=== PATIENT | male | born 1990 | race Caucasian/White ===

== ENCOUNTER 2017-05-23 18:08 | Emergency (ER) | payer OTHER ==
[2017-05-23] MEDS ORDERED: Phenergan 25 MG INJ IM ONE (18:59)
[2017-05-23] MEDS ORDERED: Sodium Chloride 0.9% 1000 ML 1,000 ML IV STA (18:59)
[2017-05-23] MEDS ORDERED: Sodium Chloride 0.9% 1000 ML 1,000 ML ONE (19:04)
[2017-05-23] MEDS ORDERED: Phenergan 25 MG INJ ONE (19:04)
[2017-05-23 19:10] LABS: BASOPHIL % 0.3 % (0.0-0.4); Eosinophil % 3.4 % (0.00-5.0); Granulocytes % 53.4 % (36.0-66.0); Lymphocytes % 36.1 % (24.0-44.0); Mean Cell Volume 88.7 fl (78-100); Mean Corpuscular Hemoglobin 30.4 pg (26-32); Mean Platelet Volume 11.9 fl (6-9.5); Monocytes % 6.8 % (0.0-12.0); Platelet Count 264 K/mm3 (150-450); Red Blood Count 4.96 M/mm3 (4.1-5.6); Red Cell Distribution Width 13.7 % (11.5-14.0); White Blood Count 7.6 K/mm3 (4.0-10.5)
--- NOTE | 2017-05-23 19:20 | ERPHSYRPT ---
- History of Present Illness Time Seen by Provider: 05/23/17 19:11 Historian: patient Exam Limitations: no limitations Patient Subjective Stated Complaint: abdominal paiin, diarrhea and fever today Triage Nursing Assessment: alert and oriented. abdomen soft.. slight pain on palpation to lower abdomen. + BS x4 quads.. diarrhea 4 hours ago.. staes able to keep fluids down. Physician History: 27-year-old white male arrives with lower abdominal pain several loose stools fever symptoms since today Patient has not had any vomiting . Patient states he's had similar symptoms 3 days ago. Past medical history negative past surgical history negative. Timing/Duration: today Activities at Onset: none Quality: cramping Abdominal Pain Onset Location: other (bilateral lower abdomen) Pain Radiation: no radiation Severity of Pain-Max: moderate Severity of Pain-Current: mild Modifying Factors: Worsens With: analgesics, antacids, breathing, coughing, defecating, eating, exercise, lying down, movement, palpation, rest, urinating, vomiting, position, walking Associated Symptoms: diarrhea, No back, No chest pain, No diaphoresis, No fever/ chills, No fatigue, No headache, No heartburn, No loss of appetite, No nausea, No neck pain, No rash, No shortness of breath, No syncope, No vomiting, No weakness Previous symptoms: same symptoms as today (similar symptoms 3 days ago) Allergies/Adverse Reactions: No Known Drug Allergies Allergy (Unverified 10/20/14 10:09) Hx Tetanus, Diphtheria Vaccination/Date Given: Yes (UP TO DATE) Hx Influenza Vaccination/Date Given: No Hx Pneumococcal Vaccination/Date Given: No Immunizations Up to Date: Yes - Review of Systems Constitutional: Fever, No Chills, No Fatigue, No Lethargy, No Malaise, No Night Sweats, No Weakness, No Weight Loss Eyes: No Symptoms Ears, Nose, & Throat: No Symptoms, No Ear Pain, No Ear Discharge, No Hearing Changes, No Tinnitus, No Nose Pain, No Nose Congestion, No Nose Discharge, No Sinus Drainage, No Epistaxis, No Mouth Pain, No Mouth Swelling, No Loose Teeth, No Throat Pain, No Throat Swelling, No Hoarse, No Painful Swallowing, No Snoring , No Stridor Respiratory: No Cough, No Dyspnea Cardiac: No Chest Pain, No Edema, No Syncope Abdominal/Gastrointestinal: Abdominal Pain, Diarrhea, No Nausea, No Vomiting, No Constipation, No Hematemesis, No Hematochezia, No Melena, No Dysphagia, No Appetite Changes Genitourinary Symptoms: No Dysuria Musculoskeletal: No Symptoms Skin: No Rash Neurological: No Dizziness, No Focal Weakness, No Sensory Changes Psychological: No Symptoms Endocrine: No Symptoms All Other Systems: Reviewed and Negative - Past Medical History Pertinent Past Medical History: No - Past Surgical History Past Surgical History: No - Social History Smoking Status: Current every day smoker How long have you smoked: 12 Exposure to second hand smoke: Yes Drug Use: none Patient Lives Alone: No - Nursing Vital Signs Nursing Vital Signs: Initial Vital Signs Temperature 97.4 F 05/23/17 18:49 Pulse Rate 85 05/23/17 18:49 Respiratory Rate 16 05/23/17 18:49 Blood Pressure 137/83 05/23/17 18:49 O2 Sat by Pulse Oximetry 98 05/23/17 18:49 Pain Scale Pain Intensity 0 - Physical Exam General Appearance: no apparent distress, alert Eye Exam: PERRL/EOMI, eyes nml inspection Ears, Nose, Throat Exam: normal ENT inspection, pharynx normal, moist mucous membranes Neck Exam: normal inspection, non-tender, supple, full range of motion Respiratory Exam: normal breath sounds, lungs clear, No respiratory distress Cardiovascular Exam: regular rate/rhythm, normal heart sounds Gastrointestinal/Abdomen Exam: soft, No tenderness, No mass Back Exam: normal inspection, normal range of motion, No CVA tenderness, No vertebral tenderness Extremity Exam: normal inspection, normal range of motion, pelvis stable Neurologic Exam: alert, oriented x 3, cooperative, lapping machine tender II-XII nml as tested, normal mood/affect, nml cerebellar function, sensation nml, No motor deficits Skin Exam: normal color, warm, dry SpO2 Interpretation: normal (98%) SpO2: 98 Oxygen Delivery: Room Air Ordered Tests: Active Orders 24 hr Category Date Time Status Clean Catch Urine Specimen STAT Care 05/23/17 18:59 Active IV Insertion STAT Care 05/23/17 18:59 Active CBC W DIFF Stat Lab 05/23/17 18:50 Completed CMP Stat Lab 05/23/17 18:50 Completed LIPASE Stat Lab 05/23/17 18:50 Completed UA W/RFX UR CULTURE Stat Lab 05/23/17 19:37 Completed Medication Summary Generic Name Dose Route Start Last Admin Trade Name Susan PRN Reason Stop Dose Admin Sodium Chloride 1,000 mls @ 999 mls/hr 05/23/17 18:59 05/23/17 19:06 Sodium Chloride 0.9% 1000 Ml IV 05/23/17 19:59 999 mls/hr .[id number] STA Administration Discontinued Medications Generic Name Dose Route Start Last Admin Trade Name Susan PRN Reason Stop Dose Admin Sodium Chloride Confirm 05/23/17 19:04 Sodium Chloride 0.9% 1000 Ml Administered 05/23/17 19:05 Dose 1,000 mls @ ud .ROUTE .STK-MED ONE Promethazine HCl 25 mg 05/23/17 18:59 05/23/17 19:08 Phenergan 25 Mg Inj IM 05/23/17 19:00 25 mg STAT ONE Administration Promethazine HCl Confirm 05/23/17 19:04 Phenergan 25 Mg Inj Administered 05/23/17 19:05 Dose 25 mg .ROUTE .STK-MED ONE Lab/Rad Data: Laboratory Result Diagrams 05/23/17 18:50 05/23/17 18:50 Laboratory Results 05/23/17 05/23/17 05/23/17 Range/Units 19:37 18:50 18:50 WBC 7.6 (4.0-10.5) K/mm3 RBC 4.96 (4.1-5.6) M/mm3 Hgb 15.1 (12.5-18.0) gm/dl Hct 44.0 (42-50) % MCV 88.7 (78-100) fl MCH 30.4 (26-32) pg MCHC 34.3 (32-36) g/dl RDW 13.7 (11.5-14.0) % Plt Count 264 (150-450) K/mm3 MPV 11.9 H (6-9.5) fl Gran % 53.4 (36.0-66.0) % Lymphocytes % 36.1 (24.0-44.0) % Monocytes % 6.8 (0.0-12.0) % Eosinophils % 3.4 (0.00-5.0) % Basophils % 0.3 (0.0-0.4) % Basophils # 0.02 (0-0.4) Sodium 140 (136-145) mEq/L Potassium 3.9 (3.5-5.1) mEq/L Chloride 105 (98-107) mEq/L Carbon Dioxide 27.3 (21-32) mEq/L Anion Gap 11.9 (5-15) MEQ/L BUN 16 (9-20) mg/dL Creatinine 0.88 (0.55-1.30) mg/dl Estimated GFR > 60 ML/MIN Glucose 89 (70-110) MG/DL Calcium 9.2 (8.5-10.1) mg/dL Total Bilirubin 0.30 (0.2-1.0) mg/dL AST 16 (15-37) U/L ALT 30 (12-78) U/L Alkaline Phosphatase 79 (46-116) U/L Serum Total Protein 7.6 (6.4-8.2) gm/dL Albumin 3.9 (3.4-5.0) g/dL Lipase 181 (73-393) U/L Ur Collection Type CLEAN CATCH Urine Color YELLOW (YELLOW) Urine Appearance CLEAR (CLEAR) Urine pH 7.0 (5-6) Ur Specific [place] 1.015 (1.005-1.025) Urine Protein NEGATIVE (Negative) Urine Ketones NEGATIVE (NEGATIVE) Urine Blood NEGATIVE (0-5) Samir/ul Urine Nitrite NEGATIVE (NEGATIVE) Urine Bilirubin NEGATIVE (NEGATIVE) Urine Urobilinogen NORMAL (0-1) mg/dL Ur Leukocyte Esterase NEGATIVE (NEGATIVE) Urine Culture Reflexed NO (NO) Urine Glucose NEGATIVE (NEGATIVE) mg/dL Specimen Received [id number] - Progress Progress: improved Progress Note: 05/23/17 19:52 27-year-old white male arrives with complaint of abdominal pain fever diarrhea symptoms since today. Patient without any significant past medical history. On physical examination slight tenderness in the suprapubic region bowel sounds are positive there is no rebound no masses. Labs are normal patient feeling better after a liter of normal saline. Will discharge patient. Patient does not want any pain meds. . - Departure Time of Disposition: 19:53 Departure Disposition: Home Clinical Impression: Abdominal pain Qualifiers: Abdominal location: unspecified location Qualified Code(s): R10.9 - Unspecified abdominal pain Diarrhea Qualifiers: Diarrhea type: unspecified type Qualified Code(s): R19.7 - Diarrhea, unspecified Condition: Fair Critical Care Time: No Referrals: DOCTOR,NO FAMILY [Primary Care Provider] - Instructions: Fever (Symptom) -- Adult Additional Instructions: Return home. Plenty of fluids clear fluids only 24-48 hours if abdominal pain. Follow-up with your family doctor if symptoms no better in 24 hours or persist longer than 48-72 hours or become worse. Return for acute distress or for severe symptoms. Tylenol every 4 hours as needed for temperature greater than 100.5 or pain.
[2017-05-23 19:34] LABS: ALBUMIN 3.9 g/dL (3.4-5.0); ALKALINE PHOSPHATASE 79 U/L (46-116); ANION GAP 11.9 MEQ/L (5-15); BLOOD UREA NITROGEN 16 mg/dL (9-20); CHLORIDE 105 mEq/L (98-107); Carbon Dioxide 27.3 mEq/L (21-32); Glucose 89 MG/DL (70-110); LIPASE 181 U/L (73-393); Potassium 3.9 mEq/L (3.5-5.1); SGOT/AST 16 U/L (15-37); SGPT/ALT 30 U/L (12-78); SODIUM 140 mEq/L (136-145); Total Protein 7.6 gm/dL (6.4-8.2)
[2017-05-23 19:41] LABS: ADD URINE CULTURE? NO (NO); Bilirubin NEGATIVE (NEGATIVE); Blood NEGATIVE Ery/ul (0-5); COMPLETE URINE MICROSCOPIC? NO; Collection Type CLEAN CATCH; Glucose NEGATIVE (NEGATIVE); Leukocyte Esterase NEGATIVE (NEGATIVE)
[2017-05-23 20:22] VITALS: BP 127/88; PULSE 60; O2SAT 100
== END 2017-05-23 20:22 | disposition home or self-care (01) ==
LOC: ED 18:08
DX: R10.9 Unspecified abdominal pain (principal); R19.7 Diarrhea, unspecified; R50.9 Fever, unspecified
CPT/HCPCS: 36000; 36415; 80053; 81002; 83690; 85025; 96360; 96372; 99284; J2550

== ENCOUNTER 2017-09-03 16:19 | Emergency (ER) | payer OTHER ==
[2017-09-03 16:34] VITALS: BP 128/70; PULSE 105; O2SAT 100
--- NOTE | 2017-09-03 16:40 | ERPHSYRPT ---
- History of Present Illness Time Seen by Provider: 09/03/17 16:34 Source: patient Exam Limitations: no limitations Allergies/Adverse Reactions: No Known Drug Allergies Allergy (Unverified 10/20/14 10:09) Hx Tetanus, Diphtheria Vaccination/Date Given: Yes (UP TO DATE) Hx Influenza Vaccination/Date Given: No Hx Pneumococcal Vaccination/Date Given: No - Past Medical History Pertinent Past Medical History: No - Past Surgical History Past Surgical History: No - Social History Smoking Status: Current every day smoker How long have you smoked: 12 Exposure to second hand smoke: Yes Drug Use: none Patient Lives Alone: No - Nursing Vital Signs Nursing Vital Signs: Initial Vital Signs Temperature 97.9 F 09/03/17 16:32 Pulse Rate 105 H 09/03/17 16:32 Respiratory Rate 18 09/03/17 16:32 Blood Pressure 128/70 09/03/17 16:32 O2 Sat by Pulse Oximetry 100 09/03/17 16:32 Pain Scale Pain Intensity 1 - Physical Exam SpO2: 100 Oxygen Delivery: Room Air - Departure Referrals: DOCTOR,NO FAMILY [Primary Care Provider] -
--- NOTE | 2017-09-03 16:45 | ERPHSYRPT ---
- History of Present Illness Time Seen by Provider: 09/03/17 16:34 Source: patient Exam Limitations: no limitations Physician History: The patient is a 27-year-old male who complains of 2 days of right testicle tenderness and swelling. He denies trauma to the area. He is worried about a hernia because he was moving a safe a few days ago. His past medical history is unremarkable. Timing/Duration: yesterday Activites at Onset: none Quality: aching Onset Location: right testicle Pain Radiation: none Severity of Pain-Max: moderate Severity of Pain-Current: moderate Modifying Factors: Improves With: nothing Associated Symptoms: swelling Prior abdominal problems: none Sexual intercourse history: non-contributory Allergies/Adverse Reactions: No Known Drug Allergies Allergy (Unverified 10/20/14 10:09) Hx Tetanus, Diphtheria Vaccination/Date Given: Yes (UP TO DATE) Hx Influenza Vaccination/Date Given: No Hx Pneumococcal Vaccination/Date Given: No - Past Medical History Pertinent Past Medical History: No - Past Surgical History Past Surgical History: No - Social History Smoking Status: Current every day smoker How long have you smoked: 12 Exposure to second hand smoke: Yes Drug Use: none Patient Lives Alone: No - Review of Systems Constitutional: No Fever, No Chills Eyes: No Symptoms Ears, Nose, & Throat: No Symptoms Respiratory: No Cough, No Dyspnea Cardiac: No Chest Pain, No Edema, No Syncope Abdominal/Gastrointestinal: No Abdominal Pain, No Nausea, No Vomiting, No Diarrhea Genitourinary Symptoms: Testicle Pain Musculoskeletal: No Back Pain, No Neck Pain Skin: No Rash Neurological: No Dizziness, No Focal Weakness, No Sensory Changes Psychological: No Symptoms Endocrine: No Symptoms Hematologic/Lymphatic: No Symptoms Immunological/Allergic: No Symptoms All Other Systems: Reviewed and Negative - Nursing Vital Signs Nursing Vital Signs: Initial Vital Signs Temperature 97.9 F 09/03/17 16:32 Pulse Rate 105 H 09/03/17 16:32 Respiratory Rate 18 09/03/17 16:32 Blood Pressure 128/70 09/03/17 16:32 O2 Sat by Pulse Oximetry 100 09/03/17 16:32 Pain Scale Pain Intensity 1 - Physical Exam General Appearance: no apparent distress, alert Eye Exam: PERRL/EOMI Ears, Nose, Throat Exam: pharynx normal, moist mucous membranes Neck Exam: normal inspection, supple Respiratory Exam: normal breath sounds, lungs clear Cardiovascular Exam: tachycardia, No edema Rectal Exam: not done Male Genital Exam: testicular tenderness (R) (posterior tenderness) Back Exam: normal inspection, No CVA tenderness Extremity Exam: normal inspection, normal range of motion, No pedal edema Neurologic Exam: alert, oriented x 3, cooperative, sensation nml, No motor deficits Skin Exam: normal color, warm, dry, No rash SpO2 Interpretation: normal SpO2: 100 Oxygen Delivery: Room Air - Progress Progress: unchanged Counseled pt/family regarding: diagnosis - Departure Time of Disposition: 16:43 Departure Disposition: Home Clinical Impression: Epididymitis Condition: Stable Critical Care Time: No Referrals: DOCTOR,NO FAMILY [Primary Care Provider] - Prescriptions: Ciprofloxacin [Cipro 500 MG] 1 tab PO BID #28 tablet
== END 2017-09-03 17:13 | disposition home or self-care (01) ==
LOC: ED 16:19
DX: N45.1 Epididymitis (principal)
CPT/HCPCS: 99281

== ENCOUNTER 2017-09-21 08:37 | Emergency (ER) | payer OTHER ==
[2017-09-21] MEDS ORDERED: XYLOCAINE 1% HCL 20 ML MDV IJ ONE (09:05)
--- NOTE | 2017-09-21 09:15 | ERPHSYRPT ---
- History of Present Illness Time Seen by Provider: 09/21/17 09:09 Source: patient Exam Limitations: no limitations Patient Subjective Stated Complaint: Pt state "I was at work and I guess the saw bladw was not done running yet and I got cut by it." Triage Nursing Assessment: Pt alert and oriented X 3, skin pwd. PT ambulates without difficutly, able to speak in clear full sentences. Pt has small laceration noted to left ring finger and left pinky. Physician History: Patient was at work and accidentally cut his left fourth and fifth finger on palmar surface with a saw blade. Patient with a 1 centimeter laceration of both fingers at the MCP and PIP joint respectively. Patient with minimal bleeding and denies numbness, tingling or weakness of distal fingers. Tetanus is up-to-date. No other injuries were noted. Occurred: just prior to arrival Method of Injury: incised Quality: intermittent Severity of Pain-Max: mild Severity of Pain-Current: mild Extremities Pain Location: 4th finger: left, 5th finger: left Modifying Factors: Improves With: immobilization (improves), movement (wworsen) Associated Symptoms: none Allergies/Adverse Reactions: No Known Drug Allergies Allergy (Unverified 10/20/14 10:09) Home Medications: Fluoxetine HCl 10 mg [Prozac 10 mg] 20 mg PO DAILY 09/21/17 [History] Hx Tetanus, Diphtheria Vaccination/Date Given: Yes Hx Influenza Vaccination/Date Given: No Hx Pneumococcal Vaccination/Date Given: No Immunizations Up to Date: Yes - Review of Systems Constitutional: No Fever, No Chills Eyes: No Symptoms Ears, Nose, & Throat: No Symptoms Respiratory: No Cough, No Dyspnea Cardiac: No Chest Pain, No Edema, No Syncope Abdominal/Gastrointestinal: No Abdominal Pain, No Nausea, No Vomiting, No Diarrhea Genitourinary Symptoms: No Dysuria Musculoskeletal: No Symptoms, No Back Pain, No Neck Pain Skin: Other (left fourthand fifth finger lacerations in history of present illness), No Rash Neurological: No Dizziness, No Focal Weakness, No Sensory Changes Psychological: No Symptoms Endocrine: No Symptoms All Other Systems: Reviewed and Negative - Past Medical History Pertinent Past Medical History: Yes Psycho-Social History: Anxiety - Past Surgical History Past Surgical History: No - Social History Smoking Status: Current every day smoker How long have you smoked: 15 years Exposure to second hand smoke: Yes Drug Use: marijuana Patient Lives Alone: No - Nursing Vital Signs Nursing Vital Signs: Initial Vital Signs Temperature 98.1 F 09/21/17 08:43 Pulse Rate 108 H 09/21/17 08:43 Respiratory Rate 18 09/21/17 08:43 Blood Pressure 150/96 09/21/17 08:43 O2 Sat by Pulse Oximetry 100 09/21/17 08:43 Pain Scale Pain Intensity 0 - Physical Exam General Appearance: alert Eyes, Ears, Nose, Throat Exam: moist mucous membranes Neck Exam: non-tender, supple Cardiovascular/Respiratory Exam: chest non-tender, normal breath sounds, regular rate/rhythm, no respiratory distress Abdominal Exam: non-tender, No guarding Back Exam: normal inspection, No vertebral tenderness Shoulder Exam: normal inspection Elbow/Forearm Exam: normal inspection Wrist Exam: normal inspection Hand Exam: laceration (there are 1 cm lacerations to the left fourth/fifth finger on palmar surface. Laceration deep to subcutaneous and does not appear to involve the tendons. Patient with good flexion strength of fourth and fifth fingers. Sensory intact as well. Good capillary refill) Neuro/Tendon Exam: normal sensation, normal motor functions Mental Status Exam: alert, oriented x 3, cooperative Skin Exam: normal color, warm, dry SpO2: 100 Oxygen Delivery: Room Air Procedures - Laceration/Wound Repair Left Finger Wound Location: Left (fourth/fifth fingers) Wound Length (cm): 1 Wound's Depth, Shape: superficial Wound Explored: no foreign body noted Irrigated: Yes Hibiclens Prep: Yes Anesthesia: 1% Lidocaine Volume Anesthetic (ccs): 5 Wound Debrided: minimal Wound Repaired With: sutures Suture Size/Type: 4-0, nylon Number of Sutures: 7 (4 to 4th/3 to 5th fingers) Layer Closure?: No Sterile Dressing Applied?: Yes Splint Applied?: Yes Type of Splint Applied: Finger Splint Sling Applied?: No - Course Nursing assessment & vital signs reviewed: Yes Ordered Tests: Active Orders 24 hr Category Date Time Status Prepare for Sutures STAT Care 09/21/17 09:05 Ordered Splint STAT Care 09/21/17 09:05 Ordered Sutures STAT Care 09/21/17 09:07 Ordered Wound Care STAT Care 09/21/17 09:05 Ordered Medication Summary Discontinued Medications Generic Name Dose Route Start Last Admin Trade Name Freq PRN Reason Stop Dose Admin Lidocaine HCl 10 ml 09/21/17 09:05 Xylocaine 1% Hcl 20 Ml Mdv IJ 09/21/17 09:06 STAT ONE - Progress Progress: improved Counseled pt/family regarding: diagnosis - Departure Time of Disposition: :43 Departure Disposition: Home Clinical Impression: Laceration of left ring finger, Laceration of left little finger Condition: Stable Critical Care Time: No Referrals: DOCTOR,NO FAMILY [Primary Care Provider] - Instructions: Laceration Repair With Stitches (DC), Wound Care (DC) Additional Instructions: May use Motrin/Tylenol for pain. Sutures may be removed in 10-14 days. No use of left hand until sutures removed Return for worse pain, swelling, pus from wound, numbness, tingling or weakness of fingers. Prescriptions: Cephalexin Mh 500 mg [Keflex 500 mg] 500 mg PO QID #40 capsule
[2017-09-21] MEDS ORDERED: BACIGUENT PACKET TP ONE (09:49)
[2017-09-21] MEDS ORDERED: BACIGUENT PACKET ONE (09:50)
[2017-09-21 09:51] VITALS: O2SAT 100
[2017-09-21] MEDS ORDERED: MOTRIN 400 MG ONE (10:02)
[2017-09-21] MEDS ORDERED: MOTRIN 600 MG PO ONE (10:03)
[2017-09-21 10:06] VITALS: BP 153/89; PULSE 103
== END 2017-09-21 10:11 | disposition home or self-care (01) ==
LOC: ED 08:37
PROC: 0HQGXZZ Repair Left Hand Skin, External Approach (ICD-10-PCS; principal; 2017-09-21)
DX: S61.215A Laceration without foreign body of left ring finger without damage to nail, initial encounter (principal); S61.217A Laceration without foreign body of left little finger without damage to nail, initial encounter; W31.2XXA Contact with powered woodworking and forming machines, initial encounter; Y92.69 Other specified industrial and construction area as the place of occurrence of the external cause; Y99.0 Civilian activity done for income or pay
CPT/HCPCS: 12001; 99283; A9270-GY

== ENCOUNTER 2017-09-24 13:46 | Emergency (ER) | payer OTHER ==
[2017-09-24 14:02] VITALS: BP 145/79
[2017-09-24] MEDS ORDERED: TORAdol 30 mg Injection IM ONE (14:22)
[2017-09-24] MEDS ORDERED: TORAdol 30 mg Injection ONE (14:29)
--- NOTE | 2017-09-24 14:47 | ERPHSYRPT ---
- History of Present Illness Time Seen by Provider: 09/24/17 14:08 Source: patient Patient Subjective Stated Complaint: pt here left rib area since last night, tripped and fell on a wooden crate last night Triage Nursing Assessment: pt alert, resp easy, skin w/d/p, no bruising noted Physician History: CC: left rib pain Hx: 27 y/o patient was running in yard at home last night and fell striking left ribs on a box/crate. He has pain in the left ribs. Pain worse with cough or movement. No other injuries. No diff breathing. No neck or back pain. He has cut on finger, already cared for and does not want it checked. Social: Works at [employer] Allergies/Adverse Reactions: No Known Drug Allergies Allergy (Verified 09/24/17 14:05) Home Medications: Fluoxetine HCl 10 mg [Prozac 10 mg] 20 mg PO DAILY 09/21/17 [History] Hx Tetanus, Diphtheria Vaccination/Date Given: Yes Hx Influenza Vaccination/Date Given: Yes Hx Pneumococcal Vaccination/Date Given: No Immunizations Up to Date: Yes - Review of Systems Constitutional: No Symptoms Respiratory: No Dyspnea Cardiac: Chest Pain (left ribs) Abdominal/Gastrointestinal: No Nausea, No Vomiting - Past Medical History Pertinent Past Medical History: No Psycho-Social History: Anxiety - Past Surgical History Past Surgical History: No - Social History Smoking Status: Current every day smoker How long have you smoked: 15 years Exposure to second hand smoke: Yes Drug Use: marijuana Patient Lives Alone: No - Nursing Vital Signs Nursing Vital Signs: Initial Vital Signs Temperature 97.3 F 09/24/17 14:00 Pulse Rate 92 H 09/24/17 14:00 Respiratory Rate 20 09/24/17 14:00 Blood Pressure 145/79 09/24/17 14:00 O2 Sat by Pulse Oximetry 99 09/24/17 14:00 Pain Scale Pain Intensity 10 - Physical Exam General Appearance: alert Eye Exam: PERRL/EOMI Ears, Nose, Throat Exam: normal ENT inspection, moist mucous membranes Neck Exam: normal inspection, non-tender, supple Respiratory Exam: normal breath sounds, chest tenderness (left lateral ribs), other (no crepitus), No respiratory distress Cardiovascular Exam: regular rate/rhythm, No murmur Gastrointestinal/Abdomen Exam: soft, No tenderness, No distention, No guarding Extremity Exam: normal range of motion, other (bandage on hand) Neurologic Exam: alert, oriented x 3, cooperative, sensation nml, No motor deficits Skin Exam: warm, dry, No rash, No ecchymosis SpO2 Interpretation: normal SpO2: 99 Oxygen Delivery: Room Air - Course Nursing assessment & vital signs reviewed: Yes - Radiology Exams cxr X-ray Interpretation: Interpreted by me, No Fracture, No Pneumonia, No Pneumothorax Ordered Tests: Active Orders 24 hr Category Date Time Status NPO (ED) STAT Care 09/24/17 14:22 Active CHEST 2 VIEWS (PA AND LAT) Stat Exams 09/24/17 14:21 Ordered Medication Summary Discontinued Medications Generic Name Dose Route Start Last Admin Trade Name Freq PRN Reason Stop Dose Admin Ketorolac Tromethamine 60 mg 09/24/17 14:22 09/24/17 14:35 Toradol 30 Mg Injection IM 09/24/17 14:23 60 mg STAT ONE Administration Ketorolac Tromethamine Confirm 09/24/17 14:29 Toradol 30 Mg Injection Administered 09/24/17 14:30 Dose 60 mg .ROUTE .STK-MED ONE - Progress Progress Note: 09/24/17 14:45 Rib contusion instr given. Counseled pt/family regarding: diagnosis, need for follow-up, rad results - Departure Time of Disposition: 14:46 Departure Disposition: Home Clinical Impression: Contusion of rib on left side Condition: Stable Critical Care Time: No Referrals: DOCTOR,NO FAMILY [Primary Care Provider] - Instructions: Bruised Rib Additional Instructions: Ice off and on. Rx ibuporofen. Return for fever or shortness of breath. Prescriptions: Ibuprofen 1 tab PO Q6H PRN PRN #24 tablet PRN Reason: pain
[2017-09-24 15:05] VITALS: PULSE 78; O2SAT 98
--- NOTE | 2017-09-24 20:53 | XRAY ---
Indication: Left rib pain following fall. Comparison: August 05, 2008. PA/lateral chest again demonstrates normal heart and lungs. Bony thorax intact.
== END 2017-09-24 15:05 | disposition home or self-care (01) ==
LOC: ED 13:46
DX: S20.212A Contusion of left front wall of thorax, initial encounter (principal); W18.39XA Other fall on same level, initial encounter; Y93.02 Activity, running
CPT/HCPCS: 71046; 96372; 99282; J1885

== ENCOUNTER 2019-09-28 10:53 | Emergency (ER) | payer MEDICAID, OTHER ==
--- NOTE | 2019-09-28 11:09 | ERPHSYRPT ---
- History of Present Illness Time Seen by Provider: 09/28/19 11:09 Source: patient Exam Limitations: no limitations Physician History: This is a 29-year-old white male who presents with approximately 2-day history of swelling to his left side upper lip. There is tenderness associated with this. Patient does have a mustache in this region. There is mild to moderate swelling yesterday and then that is increased today. There is been no drainage present. Patient denies fevers. Timing/Duration: gradual onset Severity: mild (To moderate) ENT Location: facial (Left upper lip) Prearrival Treatment: no prearrival treatment Associated Symptoms: facial pain/swelling (Left upper lip), No fever, No chills Allergies/Adverse Reactions: No Known Drug Allergies Allergy (Verified 09/28/19 11:01) Hx Tetanus, Diphtheria Vaccination/Date Given: Yes Hx Influenza Vaccination/Date Given: Yes Hx Pneumococcal Vaccination/Date Given: No - Review of Systems Constitutional: No Symptoms, No Fever, No Chills Eyes: No Symptoms Ears, Nose, & Throat: Other (Left upper lip swelling) Respiratory: No Symptoms Cardiac: No Symptoms Abdominal/Gastrointestinal: No Symptoms Genitourinary Symptoms: No Symptoms Musculoskeletal: No Symptoms Skin: No Symptoms Neurological: No Symptoms Psychological: No Symptoms Endocrine: No Symptoms Hematologic/Lymphatic: No Symptoms Immunological/Allergic: No Symptoms All Other Systems: Reviewed and Negative - Past Medical History Pertinent Past Medical History: No Neurological History: No Pertinent History ENT History: No Pertinent History Cardiac History: No Pertinent History Respiratory History: No Pertinent History Endocrine Medical History: No Pertinent History Musculoskeletal History: No Pertinent History GI Medical History: No Pertinent History History: No Pertinent History Psycho-Social History: Anxiety Male Reproductive Disorders: No Pertinent History - Past Surgical History Past Surgical History: No Neuro Surgical History: No Pertinent History Cardiac: No Pertinent History Respiratory: No Pertinent History Gastrointestinal: No Pertinent History Genitourinary: No Pertinent History Musculoskeletal: No Pertinent History Male Surgical History: No Pertinent History - Social History Smoking Status: Current every day smoker How long have you smoked: 15 years Exposure to second hand smoke: Yes Drug Use: marijuana Patient Lives Alone: No - Nursing Vital Signs Nursing Vital Signs: Initial Vital Signs Temperature 98.1 F 09/28/19 11:02 Pulse Rate 103 H 09/28/19 11:02 Respiratory Rate 18 09/28/19 11:02 Blood Pressure 128/88 09/28/19 11:02 O2 Sat by Pulse Oximetry 100 09/28/19 11:02 Pain Scale Pain Intensity 6 - Physical Exam General Appearance: no apparent distress, alert, anxiety Eye Exam: bilateral eye: normal inspection, PERRL, EOMI Ear Exam: bilateral ear: auricle normal Nasal Exam: normal inspection Neck Exam: normal inspection, non-tender, supple, full range of motion, trachea midline Cardiovascular/Respiratory Exam: chest non-tender Abdominal Exam: non-tender Neurologic Exam: alert, oriented x 3, cooperative, 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 Area is indurated with some mild localized cellulitis underneath the patient's mustache. There is no pus expressible at this time. There is no drainage visible.) SpO2 Interpretation: normal O2 Delivery: Room Air - Course Nursing assessment & vital signs reviewed: Yes Ordered Tests: Medication Summary Discontinued Medications Generic Name Dose Route Start Last Admin Trade Name Raphaelq PRN Reason Stop Dose Admin Ceftriaxone Sodium 1,000 mg 09/28/19 11:26 09/28/19 11:39 Rocephin 1000 Mg Inj IM 09/28/19 11:27 1,000 mg STAT ONE Administration Ceftriaxone Sodium Confirm 09/28/19 11:34 Rocephin 1000 Mg Inj Administered 09/28/19 11:35 Dose 1,000 mg .ROUTE .STK-MED ONE Lidocaine HCl Confirm 09/28/19 11:34 Xylocaine 1% Hcl 20 Ml Mdv Administered 09/28/19 11:35 Dose 3 ml .ROUTE .STK-MED ONE Trimethoprim/Sulfamethoxazole 1 tab 09/28/19 11:26 09/28/19 11:36 Bactrim Ds Tablet PO 09/28/19 11:27 1 tab STAT ONE Administration Trimethoprim/Sulfamethoxazole Confirm 09/28/19 11:34 Bactrim Ds Tablet Administered 09/28/19 11:35 Dose 1 tab PO .STK-MED ONE - Progress Progress: unchanged Progress Note: 09/28/19 11:51 Differential diagnosis: Deep abscess, cellulitis, folliculitis Medical decision making: At this time, the patient does not appear to have an abscess. There is no expressible pus externally or internally. There is cellulitis very localized and it appears as though there is folliculitis present. There is no abscess to drain at this time. Counseled pt/family regarding: diagnosis, need for follow-up - Departure Departure Disposition: Home Clinical Impression: Folliculitis, Cellulitis Condition: Stable Critical Care Time: No Referrals: DOCTOR,NO FAMILY [Primary Care Provider] - Additional Instructions: Shaved off your mustache. To area 3 times a day. Purchase the product called mami ease from the pharmacy and follow the directions on the package. Return tomorrow to the emergency department for re-examination. Wash area twice a day with soap and water. Add ibuprofen 600 mg orally 3 times a day with food to help with pain and swelling. Prescriptions: Hydrocodone/APAP 5-325 Tab^^^ [Blackstone 5-325 Tablet^^^] 1 tab PO Q6HPRN PRN #10 tablet MDD 6 PRN Reason: Pain Smz/Tmp Ds Tablet [Bactrim Ds Tablet] 1 udtab PO BID #14 tablet
[2019-09-28 11:10] VITALS: BP 128/88; PULSE 103; O2SAT 100
[2019-09-28] MEDS ORDERED: Rocephin 1000 MG INJ IM ONE (11:26)
[2019-09-28] MEDS ORDERED: BACTRIM DS TABLET PO ONE ×2 (11:26→11:34)
[2019-09-28] MEDS ORDERED: Rocephin 1000 MG INJ ONE (11:34)
[2019-09-28] MEDS ORDERED: XYLOCAINE 1% HCL 20 ML MDV ONE (11:34)
== END 2019-09-28 12:21 | disposition home or self-care (01) ==
LOC: ED 10:53
DX: L73.9 Follicular disorder, unspecified (principal); K13.0 Diseases of lips
CPT/HCPCS: 96372; 99283; J0696; A9270-GY

== ENCOUNTER 2020-11-09 18:40 | Emergency (ER) | payer MEDICAID, OTHER ==
[2020-11-09] MEDS ORDERED: SUBLIMAZE 100 MCG/2 ML IV ONE (18:55)
[2020-11-09] MEDS ORDERED: Zofran 4 MG/2 ML VIAL IV ONE (18:55)
[2020-11-09 18:59] VITALS: O2SAT 99
[2020-11-09 19:16] LABS: Hematocrit 41.8 % (42-50); Hemoglobin 14.1 gm/dl (12.5-18.0); Mean Cell Volume 90.1 fl (78-100); Mean Corpuscular Hemoglobin 30.4 pg (26-32); Mean Corpuscular Hgb Concent. 33.7 g/dl (32-36); Mean Platelet Volume 10.8 fl (7.5-11.0); Platelet Count 285 K/mm3 (150-450); Red Blood Count 4.64 M/mm3 (4.1-5.6); Red Cell Distribution Width 13.6 % (11.5-14.0); White Blood Count 7.8 K/mm3 (4.0-10.5)
--- NOTE | 2020-11-09 19:20 | ERPHSYRPT ---
- History of Present Illness Source: patient Exam Limitations: intoxication, other (Poor historian who is somewhat uncooper ative) Patient Subjective Stated Complaint: Pt has been drinking, doing meth, and smoking pot and was up in a tree and fell injuring his left ribs Triage Nursing Assessment: Pt brought into the ER by his friend, pt guarding left ribs, fell approx 10 ft out of a tree, rates pain 10/10 all to the left side, reports drinking alcohol, doing meth, and smoking pot today, pt calling the doctor a "Morro" due to him telling him that we needed a urine from him prior to giving him pain medication, pulses normal, skin n/w/d, no visible bruising Physician History: 30 yo wm who has been using methamphetamine/EtOh today fell out of tree approx 10 ft. Pt's pain level is a 10. He complains of L lateral thoracic pain and denies LOC/PULIDO/cervical pain/abdominal pain/UE-LE pain. Method of Injury: fall (Fell from tree 10ft?) Occurred: just prior to arrival Where Injury Occurred: home Loss of Consciousness: no loss of consciousness Pain Location: chest Severity of Pain-Max: severe Severity of Pain-Current: severe Modifying Factors: Improves With: movement Associated Symptoms: No abdominal pain, No back pain, No confusion, No chest pain, No dizziness, No extremity injury, No headache, No lightheadedness, No muscle spasms, No nausea, No neck pain, No ringing in ears, No seizures, No shortness of breath, No slurred speech, No trouble walking, No vomiting Allergies/Adverse Reactions: No Known Drug Allergies Allergy (Verified 11/09/20 18:58) Home Medications: No Reportable Medications [No Reported Medications] 11/09/20 [History] Hx Tetanus, Diphtheria Vaccination/Date Given: Yes (4 or 5 years ago) Hx Influenza Vaccination/Date Given: Yes Hx Pneumococcal Vaccination/Date Given: No Travel Risk - International Travel Have you traveled outside of the country in past 3 weeks: No - Coronavirus Screening Are you exhibiting any of the following symptoms?: No Close contact with a COVID-19 positive Pt in past 14-21 Days: No - Vaccine Status Have you recieved a Covid-19 vaccination: No - Review of Systems Constitutional: No Symptoms Eyes: No Symptoms Ears, Nose, & Throat: No Symptoms Respiratory: No Symptoms Cardiac: No Symptoms Abdominal/Gastrointestinal: No Symptoms Genitourinary Symptoms: No Symptoms Musculoskeletal: No Symptoms Skin: No Symptoms Neurological: No Symptoms Psychological: No Symptoms Endocrine: No Symptoms Hematologic/Lymphatic: No Symptoms Immunological/Allergic: No Symptoms - Past Medical History Pertinent Past Medical History: No Neurological History: No Pertinent History ENT History: No Pertinent History Cardiac History: No Pertinent History Respiratory History: No Pertinent History Endocrine Medical History: No Pertinent History Musculoskeletal History: No Pertinent History GI Medical History: No Pertinent History History: No Pertinent History Psycho-Social History: Anxiety Male Reproductive Disorders: No Pertinent History - Past Surgical History Past Surgical History: No Neuro Surgical History: No Pertinent History Cardiac: No Pertinent History Respiratory: No Pertinent History Gastrointestinal: No Pertinent History Genitourinary: No Pertinent History Musculoskeletal: No Pertinent History Male Surgical History: No Pertinent History - Social History Smoking Status: Current every day smoker How long have you smoked: 15 years Exposure to second hand smoke: Yes Drug Use: marijuana, methamphetamines Patient Lives Alone: No Significant Family History: no pertinent family hx Physical Exam - Nursing Vital Signs Nursing Vital Signs: Initial Vital Signs Pulse Rate 84 11/09/20 18:48 Respiratory Rate 30 H 11/09/20 18:48 Blood Pressure 122/96 11/09/20 18:48 O2 Sat by Pulse Oximetry 99 11/09/20 18:48 Pain Scale Pain Intensity 5 - Liv Coma Score Best Eye Response ([place]): (4) open spontaneously Best Verbal Response (Liv): (5) oriented Best Motor Response (Liv): (6) obeys commands [place] Total: 15 - Physical Exam General Appearance: no apparent distress Head Injury: no evidence of injury Eye Exam: bilateral eye: normal inspection, PERRL, EOMI ENT Exam: airway nml, No evidence of ENT injury, No clear fluid (ears), No clear fluid (nose) Neck Exam: supple, trachea midline (C-spine nttp) Respiratory/Chest Exam: chest tenderness (L lateral-inferior thoracic TTP), nor mal breath sounds Cardiovascular Exam: normal heart sounds, regular rate/rhythm, No murmur Gastrointestinal Exam: soft (Mild LUWQ TTP), normal bowel sounds, No tenderness Rectal Exam: deferred Back Exam: normal inspection, normal range of motion, No CVA tenderness, No vertebral tenderness Extremity Exam: normal inspection, normal range of motion, pelvis stable Peripheral Pulses: carotid (R): 2+, carotid (L): 2+ Neurologic Exam: alert, oriented x 3, caser up II-XII nml as tested, uncooperative, intoxicated appearance Skin Exam: normal color, warm, dry SpO2 Interpretation: normal SpO2: 99 O2 Delivery: Room Air - Course Nursing assessment & vital signs reviewed: Yes EKG Interpreted by Me: RATE (NSR/R88/Mildly elevated QTc/Peaked T waves/No acute ST segment changes) - Radiology Exams Chest X-ray Interpretation: Interpreted by me (Possible L 4th rib fx) - CT Exams Head CT Interpretation: Tele-radiologist Report (NAD) Cervical Spine CT Interpretation: Tele-radiologist Report (No fx/Trace L PTX) Chest CT Interpretation: Tele-radiologist Report (Nondisplaced L 6th rib fx/No PTX m entioned) Abdomen/Pelvis CT Interpretation: Tele-radiologist Report (Soft tissue contusion L lower flank) Ordered Tests: Active Orders 24 hr Category Date Time Status ABDOMEN AND PELVIS W CONTRAST [CT] Stat Exams 11/09/20 19:14 Taken CERVICAL SPINE WO CONTRAST [CT] Stat Exams 11/09/20 19:14 Taken CHEST WITH CONTRAST [CT] Stat Exams 11/09/20 19:14 Taken HEAD WITHOUT CONTRAST [CT] Stat Exams 11/09/20 19:14 Taken AMYLASE Stat Lab 11/09/20 19:31 Completed CMP Stat Lab 11/09/20 19:31 Completed ETHYL ALCOHOL Stat Lab 11/09/20 19:31 Completed LIPASE Stat Lab 11/09/20 19:31 Completed PROTIME WITH INR Stat Lab 11/09/20 19:12 Completed PTT Stat Lab 11/09/20 19:12 Completed UA W/RFX UR CULTURE Stat Lab 11/09/20 19:13 Ordered Urine Triage Profile Stat Lab 11/09/20 19:13 Ordered Medication Summary Discontinued Medications Generic Name Dose Route Start Last Admin Trade Name Freq PRN Reason Stop Dose Admin Fentanyl Citrate 100 mcg 11/09/20 18:55 11/09/20 20:15 Sublimaze 100 Mcg/2 Ml IV 11/09/20 18:56 100 mcg STAT ONE Administration Fentanyl Citrate Confirm 11/09/20 20:13 Sublimaze 100 Mcg/2 Ml Administered 11/09/20 20:14 Dose 100 mcg .ROUTE .STK-MED ONE Ondansetron HCl 4 mg 11/09/20 18:55 11/09/20 20:15 Zofran 4 Mg/2 Ml Vial IV 11/09/20 18:56 4 mg STAT ONE Administration Ondansetron HCl Confirm 11/09/20 20:13 Zofran 4 Mg/2 Ml Vial Administered 11/09/20 20:14 Dose 4 mg .ROUTE .STK-MED ONE Lab/Rad Data: Laboratory Result Diagrams 11/09/20 19:31 Laboratory Results 11/09/20 11/09/20 Range/Units 19:31 19:12 PT 10.9 (8.83-12.87) SECONDS INR 0.96 (0.8-3.0) APTT 25.4 (24.1-36.1) SECONDS Sodium 138 (137-145) mmol/L Potassium 4.3 (3.5-5.1) mmol/L Chloride 102 (98-107) mmol/L Carbon Dioxide 30 (22-30) mmol/L Anion Gap 11.0 (5-15) MEQ/L BUN 27 H (9-20) mg/dL Creatinine 0.88 (0.66-1.25) mg/dL Estimated GFR > 60.0 ML/MIN Glucose 94 (74-106) mg/dL Calcium 9.4 (8.4-10.2) mg/dL Total Bilirubin 0.40 (0.2-1.3) mg/dL AST 68 H (17-59) U/L ALT 51 H (0-50) U/L Alkaline Phosphatase 60 (38-126) U/L Serum Total Protein 7.4 (6.3-8.2) g/dL Albumin 4.4 (3.5-5.0) g/dL Amylase 50 (30-110) U/L Lipase 140 (23-300) U/L Ethyl Alcohol < 10 (0-10) mg/dL - Progress Progress: improved Progress Note: 11/09/20 22:20 Pt extremely loud and yelling at myself and staff. I told pt that he does not need to yell, and he called me a D@#K x4. 100umg IV Fentanyl/4mg IV Zofran w improvement in pain Pt refused to give urine sample 11/09/20 22:26 Pt states that he wants no pain meds as home Counseled pt/family regarding: lab results, need for follow-up, rad results - Departure Departure Disposition: Home Clinical Impression: Rib fracture, Substance abuse Condition: Stable Critical Care Time: No Referrals: DOCTOR,NO FAMILY [Primary Care Provider] - Instructions: Rib Fracture (DC), Contusion (DC) Additional Instructions: Motrin/tylenol for pain Follow up with a adelfo YUNG in 1-2 days Return to ER for increasing pain, shortness of breath, or temperature greater than 100.5
[2020-11-09 19:37] LABS: INR 0.96 (0.8-3.0); PROTIME 10.9 SECONDS (8.83-12.87)
[2020-11-09 19:39] LABS: PTT 25.4 SECONDS (24.1-36.1)
[2020-11-09 19:42] LABS: ALBUMIN 4.4 g/dL (3.5-5.0); ALKALINE PHOSPHATASE 60 U/L (38-126); AMYLASE 50 U/L (30-110); BLOOD UREA NITROGEN 27 mg/dL (9-20); CHLORIDE 102 mmol/L (98-107); Calcium 9.4 mg/dL (8.4-10.2); Carbon Dioxide 30 mmol/L (22-30); Creatinine 1 0.88 mg/dL (0.66-1.25); EST GLOMERULAR FILTRATION RATE > 60.0 ML/MIN; ETHYL ALCOHOL < 10 mg/dL (0-10); Glucose 94 mg/dL (74-106); LIPASE 140 U/L (23-300); Potassium 4.3 mmol/L (3.5-5.1); SGOT/AST 68 U/L (17-59); SGPT/ALT 51 U/L (0-50); SODIUM 138 mmol/L (137-145); Total Protein 7.4 g/dL (6.3-8.2)
[2020-11-09 20:11] LABS: ATYPICAL LYMPHS 3 %; BAND 1 % (0.0-2.0); Basophil 1 % (0.0-1.0); Eosinophil 1 % (0.00-3.0); Lymphocytes 38 % (24-44); Monocyte 11 % (0.0-12.0); Neutrophils 45 % (36.-66.); Platelet Estimate NORMAL (NORMAL); Total Cells Counted 100
[2020-11-09] MEDS ORDERED: Zofran 4 MG/2 ML VIAL ONE (20:13)
[2020-11-09] MEDS ORDERED: SUBLIMAZE 100 MCG/2 ML ONE (20:13)
[2020-11-09 23:03] VITALS: BP 114/75; PULSE 75
--- NOTE | 2020-11-10 08:47 | XRAY ---
Indication: Fall from tree. Alcohol, meth, and marijuana. Multiple contiguous axial images obtained through the head without contrast. Comparison: June 22, 2006. Normal appearing brain parenchyma, ventricles, and bony calvarium. Minimal mucosal thickening both maxillary sinuses. Mastoid air cells are clear. Impression: Normal CT head without contrast exam. Minimal paranasal sinus disease. Comment: Preliminary interpretation was made by [facility]. No critical discrepancy.
--- NOTE | 2020-11-10 08:49 | XRAY ---
Indication: Fall from tree. Alcohol, meth, and marijuana. Multiple contiguous axial images obtained through the cervical spine. Sagittal and coronal reformatted images obtained. Comparison: June 22, 2006. Axial images negative for acute fracture, suspicious bony lesions, or spinal canal stenosis. New minimal C5-C7 degenerative endplate spurring. Sagittal and coronal reformatted images demonstrates normal alignment with new C5-C7 disc space narrowing. No acute compression fracture, subluxation, or jumped facet. Normal appearing craniocervical junction. Visualized noncontrasted soft tissues are unremarkable. CT head and CT chest reported separately. Impression: 1. Negative acute fracture/subluxation. 2. New C5-C7 degenerative changes. Comment: Preliminary interpretation was made by [facility]. No critical discrepancy.
--- NOTE | 2020-11-10 08:57 | XRAY ---
Indication: Fall from tree. Alcohol, meth, and marijuana. Multiple contiguous axial images obtained through the chest using 100 cc Isovue 370 contrast. Comparison: None. Nondisplaced lateral left 5th/6th rib fractures with tiny adjacent pulmonary contusion and tiny pneumothorax. Remaining lungs demonstrate minimal bilateral dependent atelectasis. Heart is not enlarged. Aorta is normal in course and caliber. No pathologic mediastinal/hilar lymphadenopathy. Remaining bony thorax intact with minimal degenerative changes throughout the spine and small multilevel Schmorl nodes. CT abdomen/pelvis reported separately. Impression: Left 5/6 rib fractures with tiny pulmonary contusion and tiny pneumothorax. Comment: Preliminary interpretation was made by [facility] [place] who does not report tiny left pneumothorax. This was reported on same-day CT cervical spine exam.
--- NOTE | 2020-11-10 08:57 | XRAY ---
Indication: Left-sided pain following fall. Alcohol, meth, and marijuana. Comparison: September 24, 2017. Portable chest demonstrates normal heart and lungs. Bony thorax demonstrates CT proven left 5/6 rib fractures.
--- NOTE | 2020-11-10 09:01 | XRAY ---
Indication: Fall from tree. Alcohol, meth, and marijuana. Multiple contiguous axial images obtained through the abdomen and pelvis using 100 cc Isovue 370 contrast. Comparison: None CT chest reported separately. Noncontrasted stomach and bowel loops nonobstructed with normal air-filled appendix. There is moderate diffuse scattered colonic fecal debris throughout. Remaining liver, gallbladder, pancreas, spleen, adrenal glands, kidneys, ureters, bladder, and aorta appear normal in CT appearance and attenuation. No pathologic retroperitoneal lymphadenopathy. Osseous structures intact. Left lateral pelvis demonstrates subcutaneous soft tissue contusion/hematoma. Impression: Left pelvis soft tissue contusion/hematoma. Remaining CT abdomen/pelvis with contrast exam is negative. Comment: Preliminary interpretation was made by [facility]. No critical discrepancy.
== END 2020-11-09 23:00 | disposition home or self-care (01) ==
LOC: ED 18:40
DX: S22.32XA Fracture of one rib, left side, initial encounter for closed fracture (principal); M54.6 Pain in thoracic spine; W17.89XA Other fall from one level to another, initial encounter; Y93.89 Activity, other specified; Y92.89 Other specified places as the place of occurrence of the external cause; F15.129 Other stimulant abuse with intoxication, unspecified; Z72.89 Other problems related to lifestyle
CPT/HCPCS: 36000; 36415; 70450; 71045; 71260; 72125; 74177; 80053; 82150; 83690; 85025; 85610; 85730; 96374; 96375; 99284; G0480; 80307; J2405; J3010

== ENCOUNTER 2023-10-07 03:22 | Emergency (ER) | payer OTHER ==
[2023-10-07 03:43] VITALS: RESP 20; TEMP 97.9
[2023-10-07 04:06] LABS: Absolute Neutrophil Ct (ANC) 5.99 x10^3/uL (1.4-6.9); BASOPHIL % 0.2 % (0.0-0.4); Basophil (Absolute #) 0.02 x10^3/uL (0-0.4); Eosinophil % 0.4 % (0.00-5.0); Eosinophil (Absolute #) 0.03 x10^3/uL (0-0.5); Hematocrit 43.5 % (42-50); Hemoglobin 14.8 g/dL (12.5-18.0); IMMATURE GRAN # 0.02 x10^3u/L (0.00-0.03); IMMATURE GRAN % 0.2 % (0.00-0.4); Lymphocyte (Absolute #) 1.91 x10^3/uL (1.0-4.6); Lymphocytes % 22.8 % (24.0-44.0); Mean Cell Volume 89.3 fL (78-100); Mean Corpuscular Hemoglobin 30.4 pg (26-32); Mean Platelet Volume 10.2 fL (7.5-11.0); Monocyte (Absolute #) 0.42 x10^3/uL (0.0-1.3); Neutrophil % 71.4 % (36.0-66.0); Platelet Count 287 x10^3/uL (150-450); Red Blood Count 4.87 x10^6/uL (4.1-5.6); Red Cell Distribution Width 12.3 % (11.5-14.0); White Blood Count 8.4 x10^3/uL (4.0-10.5)
[2023-10-07 04:11] LABS: Appearance Clear (Clear); Bilirubin Negative (Negative); Blood Negative (Negative); Glucose, Urine Negative (Negative); Ketones Negative (Negative); Leukocyte Esterase Moderate (Negative); Nitrite Negative (Negative); Ph 6.5 (4.6-8.0); Protein,Urine Dip Negative (Negative); Specific Gravity 1.025 (1.005-1.030)
[2023-10-07 04:20] LABS: ALBUMIN 4.3 g/dL (3.5-5.0); ALKALINE PHOSPHATASE 67 U/L (38-126); ANION GAP 12.6 MEQ/L (5-15); BLOOD UREA NITROGEN 22 mg/dL (9-20); CHLORIDE 96 mmol/L (98-107); Calcium 9.4 mg/dL (8.4-10.2); Carbon Dioxide 28 mmol/L (22-30); EST GLOMERULAR FILTRATION RATE 116.4 ML/MIN; ETHYL ALCOHOL < 10 mg/dL (0-10); Glucose 107 mg/dL (74-106); Potassium 4.1 mmol/L (3.5-5.1); SGOT/AST 46 U/L (17-59); SGPT/ALT 38 U/L (0-50); SODIUM 133 mmol/L (135-145); Total Protein 7.7 g/dL (6.3-8.2)
[2023-10-07 04:24] LABS: Barbiturate,Urine NEGATIVE (NEGATIVE); Benzodiazepine,Urine NEGATIVE (NEGATIVE); Cocaine,Urine NEGATIVE (NEGATIVE); Methadone,Urine NEGATIVE (NEGATIVE); Opiate,Urine NEGATIVE (NEGATIVE); PCP,Urine NEGATIVE (NEGATIVE); THC,Urine POSITIVE (NEGATIVE)
[2023-10-07 04:26] LABS: WBC 51-100 /HPF (0-5)
[2023-10-07 04:26] LABS: ACETAMINOPHEN < 10 ug/ml (10-30); SALICYLATE < 1.0 mg/dL (2-20)
[2023-10-07 04:27] LABS: ADD URINE CULTURE? YES (NO); Bacteria Rare /HPF (None Seen); Epithelial Cells Rare /HPF (None Seen)
[2023-10-07 04:44] LABS: INFLUENZA A NEGATIVE (NEGATIVE); INFLUENZA B NEGATIVE (NEGATIVE); RESPIRATORY SYNCTIAL VIRUS NEGATIVE (NEGATIVE); SARS-CoV-2 Xpert Express NEGATIVE (NEGATIVE)
[2023-10-07 04:51] LABS: Amphetamine,Urine POSITIVE (NEGATIVE)
[2023-10-07] MEDS ORDERED: KEFLEX 500 MG ONE (05:22)
--- NOTE | 2023-10-07 05:22 | ERPHSYRPT ---
- History of Present Illness Time Seen by Provider: 10/07/23 03:47 Source: patient, family Exam Limitations: no limitations Patient Subjective Stated Complaint: Wellness check-Needs cleared to go to Rehab Triage Nursing Assessment: Patient ambulated back to ED and transferred self to bed. Patient A+O X3. Patient's skin pink, warm and dry. Patient states he is wanting to go to Rehab for drugs. Patient has been in contact with [facility] and was told to come to ED for medical clearance. Patient states he has been using meth, k2, marijuana. Patient states he last used Meth yesterday at noon. Patient showed up to a friend's house and wanted to go to rehab. Physician History: 33 years old male with history of substance abuse presented in the ER for medical clearance before going to rehab place in [place] called [facility]. Patient reports using substance for quite some time and wants to quit. Patient has already contacted [facility] and was instructed to be medically cleared before admission there. Patient has been using marijuana, crystal meth amphetamine, K2 and last use was yesterday. Denies any alcohol use. No suicidal or homicidal ideations. No ideas of hopelessness/helplessness. Never been through rehab before. Allergies/Adverse Reactions: No Known Drug Allergies Allergy (Verified 10/07/23 03:32) Hx Tetanus, Diphtheria Vaccination/Date Given: No Hx Influenza Vaccination/Date Given: No Hx Pneumococcal Vaccination/Date Given: No Immunizations Up to Date: No Travel Risk - International Travel Have you traveled outside of the country in past 3 weeks: No - Emerging Infectious Disease Are you exhibiting symptoms associated with any current EIDs: No - Review of Systems Constitutional: No Symptoms Eyes: No Symptoms Ears, Nose, & Throat: No Symptoms Respiratory: No Symptoms Cardiac: No Symptoms Abdominal/Gastrointestinal: No Symptoms Genitourinary Symptoms: No Symptoms Musculoskeletal: No Symptoms Skin: No Symptoms Neurological: No Symptoms Psychological: Drug Abuse, No Suicidal Ideations, No Homicidal Ideations Endocrine: No Symptoms Hematologic/Lymphatic: No Symptoms Immunological/Allergic: No Symptoms - Past Medical History Pertinent Past Medical History: No Neurological History: No Pertinent History ENT History: No Pertinent History Cardiac History: No Pertinent History Respiratory History: No Pertinent History Endocrine Medical History: No Pertinent History Musculoskeletal History: No Pertinent History GI Medical History: No Pertinent History History: No Pertinent History Psycho-Social History: Anxiety Male Reproductive Disorders: No Pertinent History - Past Surgical History Past Surgical History: No Neuro Surgical History: No Pertinent History Cardiac: No Pertinent History Respiratory: No Pertinent History Gastrointestinal: No Pertinent History Genitourinary: No Pertinent History Musculoskeletal: No Pertinent History Male Surgical History: No Pertinent History Significant Family History: no pertinent family hx - Social History Smoking Status: Current every day smoker How long have you smoked: years Exposure to second hand smoke: Yes Drug Use: marijuana, methamphetamines, other Patient Lives Alone: Yes (HOMELESS) - Nursing Vital Signs Nursing Vital Signs: Initial Vital Signs Temperature 97.9 F 10/07/23 03:33 Pulse Rate 104 H 10/07/23 03:33 Respiratory Rate 20 10/07/23 03:33 Blood Pressure 148/100 10/07/23 03:33 O2 Sat by Pulse Oximetry 98 10/07/23 03:33 Pain Scale Pain Intensity 0 - Physical Exam General Appearance: no apparent distress, alert, anxiety Eye Exam: PERRL/EOMI Ears, Nose, Throat Exam: normal ENT inspection, TMs normal, pharynx normal, moist mucous membranes Neck Exam: normal inspection, non-tender, supple, full range of motion Respiratory Exam: normal breath sounds, lungs clear Cardiovascular Exam: regular rate/rhythm, normal heart sounds Gastrointestinal/Abdomen Exam: soft, normal bowel sounds, No tenderness Back Exam: normal inspection Extremity Exam: normal inspection, normal range of motion Neurologic Exam: alert, oriented x 3, cooperative, pipe roller II-XII nml as tested, nml cerebellar function, nml station & gait, sensation nml, No normal mood/affect (Anxious), No motor deficits Skin Exam: normal color SpO2 Interpretation: normal SpO2: 98 O2 Delivery: Room Air Ordered Tests: Active Orders 24 hr Category Date Time Status Clean Catch Urine Specimen STAT Care 10/07/23 03:50 Active ACETAMINOPHEN Stat Lab 10/07/23 04:03 Completed CBC W DIFF Stat Lab 10/07/23 04:03 Completed CMP Stat Lab 10/07/23 04:03 Completed CULTURE,URINE Stat Lab 10/07/23 03:56 Received ETHYL ALCOHOL Stat Lab 10/07/23 04:03 Completed SALICYLATE Stat Lab 10/07/23 04:03 Completed UA W/RFX UR CULTURE Stat Lab 10/07/23 03:56 Completed Urine Triage Profile Stat Lab 10/07/23 03:55 Completed Medication Summary Discontinued Medications Generic Name Dose Route Start Last Admin Trade Name Susan PRN Reason Stop Dose Admin Cephalexin HCl 500 mg 10/07/23 05:17 10/07/23 05:23 Cephalexin Mh500 Mg Capsule PO 10/07/23 05:18 500 mg STAT ONE Administration Cephalexin HCl Confirm 10/07/23 05:22 Cephalexin Mh500 Mg Capsule Administered 10/07/23 05:23 Dose 500 mg .ROUTE .STK-MED ONE Lab/Rad Data: Laboratory Result Diagrams 10/07/23 04:03 10/07/23 04:03 Laboratory Results 10/07/23 10/07/23 10/07/23 Range/Units 04:03 04:03 04:03 WBC 8.4 (4.0-10.5) x10^3/uL RBC 4.87 (4.1-5.6) x10^6/uL Hgb 14.8 (12.5-18.0) g/dL Hct 43.5 (42-50) % MCV 89.3 (78-100) fL MCH 30.4 (26-32) pg MCHC 34.0 (32-36) g/dL RDW 12.3 (11.5-14.0) % Plt Count 287 (150-450) x10^3/uL MPV 10.2 (7.5-11.0) fL Gran % 71.4 H (36.0-66.0) % Immature Gran % (Auto) 0.2 (0.00-0.4) % Nucleat RBC Rel Count 0.0 (0.00-0.1) % Eos # (Auto) 0.03 (0-0.5) x10^3/uL Immature Gran # (Auto) 0.02 (0.00-0.03) x10^3u/L Absolute Lymphs (auto) 1.91 (1.0-4.6) x10^3/uL Absolute Monos (auto) 0.42 (0.0-1.3) x10^3/uL Absolute Nucleated RBC 0.00 (0.00-0.01) x10^3u/L Lymphocytes % 22.8 L (24.0-44.0) % Monocytes % 5.0 (0.0-12.0) % Eosinophils % 0.4 (0.00-5.0) % Basophils % 0.2 (0.0-0.4) % Absolute Granulocytes 5.99 (1.4-6.9) x10^3/uL Basophils # 0.02 (0-0.4) x10^3/uL Sodium 133 L (135-145) mmol/L Potassium 4.1 (3.5-5.1) mmol/L Chloride 96 L (98-107) mmol/L Carbon Dioxide 28 (22-30) mmol/L Anion Gap 12.6 (5-15) MEQ/L BUN 22 H (9-20) mg/dL Creatinine 0.90 (0.66-1.25) mg/dL Estimated GFR 116.4 ML/MIN Glucose 107 H (74-106) mg/dL Calcium 9.4 (8.4-10.2) mg/dL Total Bilirubin 0.20 (0.2-1.3) mg/dL AST 46 (17-59) U/L ALT 38 (0-50) U/L Alkaline Phosphatase 67 (38-126) U/L Serum Total Protein 7.7 (6.3-8.2) g/dL Albumin 4.3 (3.5-5.0) g/dL Urine Color (Yellow) Urine Appearance (Clear) Urine pH (4.6-8.0) Ur Specific [place] (1.005-1.030) Urine Protein (Negative) Urine Glucose (UA) (Negative) mg/dL Urine Ketones (Negative) Urine Blood (Negative) Urine Nitrite (Negative) Urine Bilirubin (Negative) Urine Urobilinogen (0.2) mg/dL Ur Leukocyte Esterase (Negative) Urine Microscopic RBC (0-5) /HPF Urine Microscopic WBC (0-5) /HPF Ur Epithelial Cells (None Seen) /HPF Urine Bacteria (None Seen) /HPF Urine Culture Reflexed (NO) Salicylates < 1.0 L (2-20) mg/dL Urine Opiates Level (NEGATIVE) Ur Methadone (NEGATIVE) Acetaminophen < 10 L (10-30) ug/ml Urine Barbiturates (NEGATIVE) Ur Phencyclidine (PCP) (NEGATIVE) Urine Amphetamine (NEGATIVE) U Benzodiazepine Level (NEGATIVE) Urine Cocaine (NEGATIVE) Urine Marijuana (THC) (NEGATIVE) Ethyl Alcohol < 10 (0-10) mg/dL Influenza Type A Ag (NEGATIVE) Influenza Type B Ag (NEGATIVE) RSV (PCR) (NEGATIVE) SARS-CoV-2 (PCR) (NEGATIVE) 10/07/23 10/07/23 10/07/23 Range/Units 03:56 03:56 03:55 WBC (4.0-10.5) x10^3/uL RBC (4.1-5.6) x10^6/uL Hgb (12.5-18.0) g/dL Hct (42-50) % MCV (78-100) fL MCH (26-32) pg MCHC (32-36) g/dL RDW (11.5-14.0) % Plt Count (150-450) x10^3/uL MPV (7.5-11.0) fL Gran % (36.0-66.0) % Immature Gran % (Auto) (0.00-0.4) % Nucleat RBC Rel Count (0.00-0.1) % Eos # (Auto) (0-0.5) x10^3/uL Immature Gran # (Auto) (0.00-0.03) x10^3u/L Absolute Lymphs (auto) (1.0-4.6) x10^3/uL Absolute Monos (auto) (0.0-1.3) x10^3/uL Absolute Nucleated RBC (0.00-0.01) x10^3u/L Lymphocytes % (24.0-44.0) % Monocytes % (0.0-12.0) % Eosinophils % (0.00-5.0) % Basophils % (0.0-0.4) % Absolute Granulocytes (1.4-6.9) x10^3/uL Basophils # (0-0.4) x10^3/uL Sodium (135-145) mmol/L Potassium (3.5-5.1) mmol/L Chloride (98-107) mmol/L Carbon Dioxide (22-30) mmol/L Anion Gap (5-15) MEQ/L BUN (9-20) mg/dL Creatinine (0.66-1.25) mg/dL Estimated GFR ML/MIN Glucose (74-106) mg/dL Calcium (8.4-10.2) mg/dL Total Bilirubin (0.2-1.3) mg/dL AST (17-59) U/L ALT (0-50) U/L Alkaline Phosphatase (38-126) U/L Serum Total Protein (6.3-8.2) g/dL Albumin (3.5-5.0) g/dL Urine Color Yellow (Yellow) Urine Appearance Clear (Clear) Urine pH 6.5 (4.6-8.0) Ur Specific [place] 1.025 (1.005-1.030) Urine Protein Negative (Negative) Urine Glucose (UA) Negative (Negative) mg/dL Urine Ketones Negative (Negative) Urine Blood Negative (Negative) Urine Nitrite Negative (Negative) Urine Bilirubin Negative (Negative) Urine Urobilinogen 1.0 A (0.2) mg/dL Ur Leukocyte Esterase Moderate A (Negative) Urine Microscopic RBC 3-5 (0-5) /HPF Urine Microscopic WBC 51-100 A (0-5) /HPF Ur Epithelial Cells Rare (None Seen) /HPF Urine Bacteria Rare A (None Seen) /HPF Urine Culture Reflexed YES (NO) Salicylates (2-20) mg/dL Urine Opiates Level NEGATIVE (NEGATIVE) Ur Methadone NEGATIVE (NEGATIVE) Acetaminophen (10-30) ug/ml Urine Barbiturates NEGATIVE (NEGATIVE) Ur Phencyclidine (PCP) NEGATIVE (NEGATIVE) Urine Amphetamine POSITIVE A (NEGATIVE) U Benzodiazepine Level NEGATIVE (NEGATIVE) Urine Cocaine NEGATIVE (NEGATIVE) Urine Marijuana (THC) POSITIVE A (NEGATIVE) Ethyl Alcohol (0-10) mg/dL Influenza Type A Ag NEGATIVE (NEGATIVE) Influenza Type B Ag NEGATIVE (NEGATIVE) RSV (PCR) NEGATIVE (NEGATIVE) SARS-CoV-2 (PCR) NEGATIVE (NEGATIVE) - Progress Progress: unchanged Progress Note: 10/07/23 05:18 33 years old with history of substance abuse is evaluated for medical clearance. Patient is not confused or altered at all. Not in any distress. Has normal white count, fairly unremarkable chemistries. Does have UTI and started on Keflex. Urine drug screen positive for methamphetamine and marijuana. He is medically cleared to go to [place] rehab. His friends are with him and they are going to take him to rehab upon discharge from here. Counseled pt/family regarding: lab results, diagnosis, need for follow-up, rad results, smoking cessation Medical Desision Making - Independent Historian Additional History obtained from: Relative/friend - Diagnostic Testing Diagnostic test were ordered, analyzed, and reviewed by me: Yes - Risk of complications The pt has a mod risk of morbidity or mortality based on: Need for prescription drug management - Departure Departure Disposition: Home Clinical Impression: Polysubstance abuse, Acute UTI (urinary tract infection), Medical clearance for psychiatric admission Condition: Stable Critical Care Time: No Referrals: DOCTOR,NO FAMILY [Primary Care Provider] - Follow up/PCP as directed Instructions: Polysubstance Use Disorder (DC) Additional Instructions: Medically cleared to go to recovery rehab. Continue with antibiotics for UTI. Return to ER for any worsening. Prescriptions: Cephalexin Mh 500 mg [Keflex 500 mg] 500 mg PO TID #21 cap
[2023-10-07] MEDS: KEFLEX 500 MG PO ONE (05:23)
[2023-10-07 05:54] VITALS: BP 144/103; PULSE 82; O2SAT 100
== END 2023-10-07 05:55 | disposition home or self-care (01) ==
LOC: ED 03:22
DX: Z02.2 Encounter for examination for admission to residential institution (principal); N39.0 Urinary tract infection, site not specified; F19.10 Other psychoactive substance abuse, uncomplicated; Z72.0 Tobacco use; Z59.00 Homelessness unspecified
CPT/HCPCS: 0241U; 36415; 80053; 80143; 80179; 80307; 81001; 82077; 85025; 87086; 93005; 99283; A9270-GY

== ENCOUNTER 2023-10-12 17:14 | Emergency (ER) | payer OTHER ==
[2023-10-12 18:06] VITALS: PULSE 80; RESP 18; TEMP 98; O2SAT 100
[2023-10-12] MEDS ORDERED: TETRACAINE 0.5% STERI-UNIT SOL OP ONE (18:07)
[2023-10-12] MEDS ORDERED: Eye-Stream Solution ONE (18:08)
[2023-10-12] MEDS ORDERED: Fluor-I-Strip/Ful-Flo OP ONE (18:08)
[2023-10-12] MEDS: TETRACAINE 0.5% STERI-UNIT SOL OP STA (18:10)
[2023-10-12] MEDS: Eye-Stream Solution OP ONE (18:10)
[2023-10-12] MEDS: Fluor-I-Strip/Ful-Flo OP ONE (18:10)
[2023-10-12] MEDS ORDERED: Ocuflox OPHTHALMIC 5 ML OP ONE (18:38)
--- NOTE | 2023-10-12 18:38 | ERPHSYRPT ---
- History of Present Illness Time Seen by Provider: 10/12/23 17:26 Source: patient Exam Limitations: no limitations Patient Subjective Stated Complaint: C/O something in right eye. States he is unsure how something got into his eye. Denies pain or itching. Denies issues wi th his vision. Triage Nursing Assessment: Patient arrived by ambulance. He rambles at times. He is alert to self and place. Patient is paranoid; speaking about someone trying in implant things into his eye but isn't sure who. Right eye 20/100 vision and left eye 20/50 vision upon exam. Physician History: 33 years old male presented to the ER with complains of something got into his right eye while he was eating almost 2 hours prior to arrival. Patient think it was a small bug. He tried to wash it out and has been rubbing. Reports some burning sensation and minimal photophobia. Patient denies any eye discharge. Up-to-date with tetanus. Denies any swelling of lids. Allergies/Adverse Reactions: No Known Drug Allergies Allergy (Verified 10/12/23 18:08) Home Medications: No Reportable Medications [No Reported Medications] 10/12/23 [History] Hx Tetanus, Diphtheria Vaccination/Date Given: No Hx Influenza Vaccination/Date Given: No Hx Pneumococcal Vaccination/Date Given: No Immunizations Up to Date: No Travel Risk - International Travel Have you traveled outside of the country in past 3 weeks: No - Emerging Infectious Disease Are you exhibiting symptoms associated with any current EIDs: No - Review of Systems Constitutional: No Symptoms Eyes: Eye Pain, Eye Redness, Photophobia, Vision Changes, Foreign Body Sensation Ears, Nose, & Throat: No Symptoms Respiratory: No Symptoms Cardiac: No Symptoms Abdominal/Gastrointestinal: No Symptoms Psychological: Anxiety, No Suicidal Ideations, No Homicidal Ideations Endocrine: No Symptoms - Past Medical History Pertinent Past Medical History: Yes Neurological History: No Pertinent History ENT History: No Pertinent History Cardiac History: No Pertinent History Respiratory History: No Pertinent History Endocrine Medical History: No Pertinent History Musculoskeletal History: No Pertinent History GI Medical History: No Pertinent History History: No Pertinent History Psycho-Social History: Anxiety, Depression Male Reproductive Disorders: No Pertinent History - Past Surgical History Past Surgical History: No Neuro Surgical History: No Pertinent History Cardiac: No Pertinent History Respiratory: No Pertinent History Gastrointestinal: No Pertinent History Genitourinary: No Pertinent History Musculoskeletal: No Pertinent History Male Surgical History: No Pertinent History Significant Family History: no pertinent family hx - Social History Smoking Status: Current every day smoker How long have you smoked: years Exposure to second hand smoke: Yes Drug Use: marijuana, methamphetamines, other Patient Lives Alone: Yes (HOMELESS) - Nursing Vital Signs Nursing Vital Signs: Initial Vital Signs Temperature 98 F 10/12/23 17:56 Pulse Rate 80 10/12/23 17:56 Respiratory Rate 18 10/12/23 17:56 Blood Pressure 134/82 10/12/23 17:56 O2 Sat by Pulse Oximetry 100 10/12/23 17:56 Pain Scale Pain Intensity 0 - Physical Exam General Appearance: no apparent distress, alert Vision Acuity Degree Evaluation Phase: Corrected Vision Acuity Right Eye: 20/100 Vision Acuity Left Eye: 20/50 Eye Exam: right eye: conjunctival hemorrhage (Conjunctival redness), corneal abr asion (Diffuse on the lateral side minimally involving the pupil area), left eye: normal inspection, bilateral eye: PERRL, EOMI Ears, Nose, Throat Exam: normal ENT inspection, pharynx normal, moist mucous membranes Neck Exam: normal inspection, non-tender, supple, full range of motion Respiratory Exam: normal breath sounds, lungs clear Cardiovascular Exam: regular rate/rhythm, normal heart sounds Neurologic: alert, oriented x 3, cooperative, No normal mood/affect (Anxious and paranoid), No intoxicated appearance Skin Exam: normal color SpO2 Interpretation: normal SpO2: 100 O2 Delivery: Room Air Ordered Tests: Medication Summary Discontinued Medications Generic Name Dose Route Start Last Admin Trade Name Raphaelq PRN Reason Stop Dose Admin Eye Irrigation Solution 15 ml 10/12/23 18:08 10/12/23 18:10 Sodium/Potassium/Emir/Magnesium 30 Ml Eye Wash OP 10/12/23 18:09 15 ml STAT ONE Administration Eye Irrigation Solution Confirm 10/12/23 18:08 Sodium/Potassium/Emir/Magnesium 30 Ml Eye Wash Administered 10/12/23 18:09 Dose 30 ml .ROUTE .STK-MED ONE Fluorescein Sodium 1 mg 10/12/23 18:08 10/12/23 18:10 Fluorescein Sodium 1 Mg/Strip Strip OP 10/12/23 18:09 1 mg STAT ONE Administration Fluorescein Sodium Confirm 10/12/23 18:08 Fluorescein Sodium 1 Mg/Strip Strip Administered 10/12/23 18:09 Dose 1 mg OP .STK-MED ONE Ofloxacin 5 ml 10/12/23 18:45 10/12/23 18:39 Ofloxacin 0.3% Opth 5 Ml Eye Drops OP 11/11/23 18:44 5 ml Q6H KIARA Administration Ofloxacin Confirm 10/12/23 18:38 Ofloxacin 0.3% Opth 5 Ml Eye Drops Administered 10/12/23 18:39 Dose 5 ml OP .STK-MED ONE Tetracaine HCl 4 ml 10/12/23 18:08 10/12/23 18:10 Tetracaine Hcl/Pf 4 Ml Bottle OP 10/12/23 18:09 4 ml STAT STA Administration Tetracaine HCl Confirm 10/12/23 18:07 Tetracaine Hcl/Pf 4 Ml Bottle Administered 10/12/23 18:08 Dose 4 ml OP .STK-MED ONE - Progress Progress: improved Progress Note: 10/12/23 18:36 33 years old is evaluated for right eye foreign body sensation with burning after something got into his eye. Patient has mild conjunctival redness. No obvious foreign body seen. After tetracaine drops and fluorescein stain applied and Ybarra lamp showed diffuse abrasion on the right lateral aspect of the cornea with minimal involvement of pupillary area. He started on ofloxacin eyedrops and recommended outpatient follow-up. Recommended taking Tylenol ibuprofen as needed. Discussed signs symptoms of worsening needing return to ER which she seems understanding. Patient is anxious and paranoid but denies any suicidal or homicidal ideations. Counseled pt/family regarding: diagnosis, need for follow-up Medical Desision Making - Diagnostic Testing Diagnostic test were ordered, analyzed, and reviewed by me: No - Risk of complications The pt has a mod risk of morbidity or mortality based on: Need for prescription drug management - Departure Departure Disposition: Home Clinical Impression: Corneal abrasion Condition: Stable Critical Care Time: No Referrals: DOCTOR,NO FAMILY [Primary Care Provider] - Follow up/PCP as directed Instructions: Corneal Abrasion (DC) Additional Instructions: Use 1-2 drops every 6 hours for next 5 to 7 days. Follow-up with your eye doctor for reevaluation tomorrow morning. Do not rub your eyes. Return to ER for worsening pain, discharge, vision changes etc.
[2023-10-12] MEDS: Ocuflox OPHTHALMIC 5 ML OP SCH (18:39)
[2023-10-12 18:41] VITALS: BP 132/75
== END 2023-10-12 18:50 | disposition home or self-care (01) ==
LOC: ED 17:14
DX: S05.01XA Injury of conjunctiva and corneal abrasion without foreign body, right eye, initial encounter (principal); W20.8XXA Other cause of strike by thrown, projected or falling object, initial encounter; Z72.0 Tobacco use; Z59.00 Homelessness unspecified
CPT/HCPCS: 99281; A9270-GY